=== PATIENT | female | born 1945 | race Caucasian/White ===

== ENCOUNTER → 2024-04-09 12:49 | Outpatient (REF) | payer MEDICARE, OTHER, SELFPAY | LOC: RAD 12:49 | PROVIDERS: ATTENDING PHYSICIAN Surgery Vascular Surgery; FAMILY PHYSICIAN Internal Medicine | DX: I65.22 Occlusion and stenosis of left carotid artery (principal); I73.9 Peripheral vascular disease, unspecified | CPT/HCPCS: 93931 ==

== ENCOUNTER → 2025-04-15 13:29 | Outpatient (REF) | payer MEDICARE, OTHER, SELFPAY | LOC: RAD 13:29 | PROVIDERS: ATTENDING PHYSICIAN Surgery Vascular Surgery; FAMILY PHYSICIAN Internal Medicine | DX: I73.9 Peripheral vascular disease, unspecified (principal) | CPT/HCPCS: 93931 ==